=== PATIENT | female | born 1985 | race Caucasian/White ===

== ENCOUNTER 2020-02-06 22:07 | Emergency (ER) | payer BC, OTHER ==
[2020-02-06] MEDS ORDERED: LORazepam 2 MG/ML SDV IM STA (22:32)
--- NOTE | 2020-02-06 22:37 | EDM.PDOC ---
ED HPI GENERAL MEDICAL PROBLEM - General Chief Complaint: General Stated Complaint: SHORTNESS OF BREATH Time Seen by Provider: 02/06/20 22:25 Source of Information: Reports: Patient History Limitations: Reports: No Limitations - History of Present Illness INITIAL COMMENTS - FREE TEXT/NARRATIVE: Patient presented to the ED because of chest pain, numbness and tingling on her face and hands. She has a h/o anxiety and is taking klonopin. She said she has been under a lot of stress recently specially with the COVID-19. Chest Pain Score (Numeric/FACES): 6 - Related Data Allergies Allergy/AdvReac Type Severity Reaction Status Date / Time codeine Allergy Nausea and Verified 04/24/13 13:41 Vomiting Home Meds: Home Meds Ibuprofen [Motrin] 200 mg PO Q6H 500 Days tablet 04/27/13 [Rx] Albuterol [Ventolin HFA] 02/06/20 [History] Doxepin [SINEquan] 50 mg PO DAILY 02/06/20 [History] Eletriptan Hydrobromide [Eletriptan HBr] 40 mg PO DAILY 02/06/20 [History] Erenumab-Aooe [Aimovig Autoinjector] 140 mg INJECT ASDIRECTED 02/06/20 [History] Fluticasone Propionate [Flonase] 50 mcg INH DAILY 02/06/20 [History] Fluticasone/Salmeterol [Advair 500-50] 500 mcg INH DAILY 02/06/20 [History] Montelukast Sodium 10 mg PO DAILY 02/06/20 [History] clonazePAM [Clonazepam] 0.5 mg PO BEDTIME 02/06/20 [History] Past Medical History - Past Health History Medical/Surgical History: Denies Medical/Surgical History ED ROS GENERAL - Review of Systems Review Of Systems: See Below Constitutional: Reports: No Symptoms HEENT: Reports: No Symptoms Respiratory: Reports: No Symptoms Cardiovascular: Reports: Chest Pain Endocrine: Reports: No Symptoms GI/Abdominal: Reports: No Symptoms : Reports: No Symptoms Musculoskeletal: Reports: No Symptoms Skin: Reports: No Symptoms Neurological: Reports: No Symptoms Psychiatric: Reports: No Symptoms Hematologic/Lymphatic: Reports: No Symptoms ED EXAM, GENERAL - Physical Exam Exam: See Below Exam Limited By: No Limitations General Appearance: Alert, No Apparent Distress Eye Exam: Bilateral Eye: PERRL Ears: Normal External Exam, Normal Canal Nose: Normal Inspection, Normal Mucosa Throat/Mouth: Normal Inspection, Normal Lips, Normal Teeth Head: Atraumatic, Normocephalic Neck: Normal Inspection, Supple, Non-Tender, Full Range of Motion Respiratory/Chest: No Respiratory Distress, Lungs Clear, Normal Breath Sounds Cardiovascular: Normal Peripheral Pulses, Regular Rate, Rhythm, No Edema, No Gallop, No JVD, No Murmur GI/Abdominal: Normal Bowel Sounds, Soft, Non-Tender, No Organomegaly Back Exam: Normal Inspection, Full Range of Motion Course - Vital Signs Text/Narrative:: Ativan 1 mg IM x1 EKG-NSR Last Recorded V/S: Last Vital Signs Temp 36.7 C 02/06/20 22:23 Pulse 97 02/06/20 23:11 Resp 12 02/06/20 23:11 BP 131/78 02/06/20 23:11 Pulse Ox 96 02/06/20 23:11 - Orders/Labs/Meds Meds: Medications Discontinued Medications Generic Name Dose Route Start Last Admin Trade Name Brennan PRN Reason Stop Dose Admin Lorazepam 1 mg 02/06/20 22:32 02/06/20 22:40 Ativan IM 02/06/20 22:33 1 mg NOW STA Administration Departure - Departure Time of Disposition: 22:55 Disposition: Home, Self-Care 01 Condition: Good Clinical Impression: Anxiety - Discharge Information Instructions: Generalized Anxiety Disorder, Adult Referrals: Stephen Mcdonald MD [Primary Care Provider] - Forms: ED Department Discharge Additional Instructions: please read discharge instructions on anxiety attack do some meditation technique in you tube take you clonazepam as prescribed follow up as needed Sepsis Event Note (ED) - Evaluation Sepsis Screening Result: No Definite Risk - Focused Exam Vital Signs: Vital Signs Temp Pulse Resp BP Pulse Ox 02/06/20 23:11 97 12 131/78 96 02/06/20 22:23 36.7 C 101 H 16 133/77 100
[2020-02-06 23:12] VITALS: BP 131/78; PULSE 97
== END 2020-02-06 23:20 | disposition home or self-care (01) ==
LOC: FB.ED 22:07
DX: F41.9 Anxiety disorder, unspecified (principal); Z88.5 Allergy status to narcotic agent; Z79.899 Other long term (current) drug therapy
CPT/HCPCS: 93005; 96372; 99284; J2060; 99283

== ENCOUNTER 2020-07-31 13:59 | Emergency (ER) | payer OTHER ==
--- NOTE | 2020-07-31 14:09 | EDM.PDOC ---
ED HPI GENERAL MEDICAL PROBLEM - General Stated Complaint: POSSIBLE BROKE FINGER ON LEFT HAND Time Seen by Provider: 07/31/20 14:05 Source of Information: Reports: Patient History Limitations: Reports: No Limitations - History of Present Illness INITIAL COMMENTS - FREE TEXT/NARRATIVE: 35-year-old female who reports that she was walking down the stairs with a load of things for her son and she misstepped and fell landing on her back and twisting her left ankle and catching herself with her left hand causing an injury to her left palm and to her left fourth finger. This occurred approximately 1:40 PM. She denies any head injury or loss of consciousness. She does report pain in the left fourth finger that she rates as a 10/10. It is sharp and stinging. She reports a 2/10 level of pain in her left ankle but has full range of motion in the ankle and is ambulatory without any problems. She has no neck or back pain. No nausea or vomiting. The pain in her left fourth finger is worse with palpation and with movement. She does have 2 rings on the left fourth finger and the finger is quite swollen and these cannot be removed even with lubricating gel. The finger is well perfused but I did recommend that the rings be removed and initially the patient was quite opposed to this but later did give consent to allow us to cut the rings to remove them. This was witnessed by SMITA Isidro. There are no other associated signs or symptoms. There are no other modifying factors. Onset: Today Duration: Constant (1:40 PM) Location: Reports: Upper Extremity, Left (Left fourth finger) Quality: Reports: Sharp, Stabbing Severity: Moderate (to severe) Improves with: Reports: Rest Worsens with: Reports: Other (Palpation), Movement Context: Reports: Trauma Associated Symptoms: Reports: No Other Symptoms Treatments ORE MINER: Reports: Other (see below) (Nothing.) left 4th finger Pain Score (Numeric/FACES): 6 - Related Data Allergies Allergy/AdvReac Type Severity Reaction Status Date / Time codeine Allergy Nausea and Verified 07/31/20 14:33 Vomiting Home Meds: Home Meds Ibuprofen [Motrin] 200 mg PO Q6H 500 Days tablet 04/27/13 [Rx] Albuterol [Ventolin HFA] 1 puff INH ASDIRECTED PRN 02/06/20 [History] Doxepin [SINEquan] 50 mg PO DAILY 02/06/20 [History] Eletriptan Hydrobromide [Eletriptan HBr] 40 mg PO DAILY 02/06/20 [History] Erenumab-Aooe [Aimovig Autoinjector] 140 mg INJECT ASDIRECTED 02/06/20 [History] Fluticasone Propionate [Flonase] 50 mcg INH DAILY 02/06/20 [History] Fluticasone/Salmeterol [Advair 500-50] 500 mcg INH DAILY 02/06/20 [History] Montelukast Sodium 10 mg PO DAILY 02/06/20 [History] clonazePAM [Clonazepam] 0.5 mg PO BEDTIME 02/06/20 [History] Past Medical History Respiratory History: Reports: Asthma Neurological History: Reports: Migraines Psychiatric History: Reports: Anxiety, Depression, Panic Attack, Other (See Below) Other Psychiatric History: night terrors Endocrine/Metabolic History: Reports: Obesity/BMI 30+ - Past Surgical History HEENT Surgical History: Reports: Oral Surgery ([place] teeth extraction), Tonsillectomy Female Surgical History: Reports: Section Social & Family History - Tobacco Use Tobacco Use Status *Q: Unknown Ever Used Tobacco (Nonsmoker) - Alcohol Use Alcohol Use History: No - Living Situation & Occupation Living situation: Reports: 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 So she is not up-to-date on her tetanus immunization and she was given a Tdap immunization today.) Eyes: Reports: No Symptoms Ears: Reports: No Symptoms Nose: Reports: No Symptoms Mouth/Throat: Reports: No Symptoms Respiratory: Reports: No Symptoms Cardiovascular: Reports: No Symptoms GI/Abdominal: Reports: No Symptoms Musculoskeletal: Reports: Joint Pain (Mild pain and left ankle but with full and active range of motion and normal weightbearing.), Other (Left fourth finger pain with deformity over the DIP of the left fourth finger.) Skin: Reports: Wound (Abrasions on the left fourth finger and left thenar Palm.) Neurological: Reports: No Symptoms Psychiatric: Reports: Anxiety ED EXAM, GENERAL - Physical Exam Exam: See Below Exam Limited By: No Limitations General Appearance: Alert, Anxious, Moderate Distress (And some pain.), Obese Eye Exam: Bilateral Eye: EOMI, Normal Inspection Ears: Normal External Exam, Hearing Grossly Normal Ear Exam: Bilateral Ear: Auricle Normal Nose: Normal Inspection, Normal Mucosa, No Blood Throat/Mouth: Normal Inspection, Normal Lips, Normal Oropharynx, Normal Voice, No Airway Compromise Head: Atraumatic, Normocephalic Neck: Normal Inspection, Supple, Non-Tender, Full Range of Motion Respiratory/Chest: No Respiratory Distress, Lungs Clear, Normal Breath Sounds, No Accessory Muscle Use, Chest Non-Tender Cardiovascular: Normal Peripheral Pulses, Regular Rate, Rhythm, No Murmur Peripheral Pulses: 2+: Radial (L), Radial (R) GI/Abdominal: Normal Bowel Sounds, Soft, Non-Tender, No Mass Back Exam: Normal Inspection, Full Range of Motion Extremities: Normal Range of Motion (In both ankles.), No Pedal Edema, Normal Capillary Refill, Limited Range of Motion (In left fourth finger with obvious deformity of the DIP joint of the left fourth finger.) Neurological: Alert, Oriented, CN II-XII Intact, Normal Cognition, No Motor/Sensory Deficits Psychiatric: Anxious Skin Exam: Warm, Dry, Normal Color, Wound/Incision (Abrasions on the left hand as above.) ED TRAUMA EXTREMITY PROCEDURES - Joint Reduction Left Fingers Sedation: Other (Oral pain medication) Pre-Procedure NV Status: Normal Post-Procedure NV Status: Normal Technique: Traction/Counter Traction Number of Attempts: 1 Joint Reduction Complications: No Progress/Comments: It should be noted this was a reduction of dislocation of the left fourth finger DIP joint. There does appear to be a volar plate fracture prior to reduction of the distal phalanx of the left fourth finger. An AlumaFoam splint distal left fourth finger over the DIP joint in extension by the nursing staff.. - Additional/Other Procedure(s) Other (Free Text) Procedure(s): After informed verbal consent was obtained from the patient, the 2 rings on the left fourth finger were removed using the ring cutter device. The patient tolerated this well and there were no apparent complications. Course - Vital Signs Last Recorded V/S: Last Vital Signs Temp 36.8 C 07/31/20 14:35 Pulse 98 07/31/20 14:35 Resp 20 07/31/20 14:35 BP 142/85 H 07/31/20 14:35 Pulse Ox 100 07/31/20 14:35 - Orders/Labs/Meds Orders: Active Orders 24 hr Category Date Time Status Vaccines to be Administered [RC] PER UNIT ROUTINE Care 07/31/20 14:22 Active Fingers Fourth Digit Lt F3 [CR] Stat Exams 07/31/20 14:10 Taken Fingers Fourth Digit Lt F3 [CR] Stat Exams 07/31/20 15:14 Taken Meds: Medications Discontinued Medications Generic Name Dose Route Start Last Admin Trade Name Brennan PRN Reason Stop Dose Admin Hydrocodone Bitart/Acetaminophen Confirm 07/31/20 14:45 07/31/20 14:56 Brixey 325-5 Mg Administered 07/31/20 14:46 Not Given Dose 2 tab .ROUTE .STK-MED ONE Hydrocodone Bitart/Acetaminophen 2 tab 07/31/20 14:47 07/31/20 14:50 Brixey 325-5 Mg PO 07/31/20 14:48 2 tab ONETIME ONE Administration Diphtheria/Tetanus/Acell Pertussis 0.5 ml 07/31/20 14:22 07/31/20 15:30 Boostrix IM 07/31/20 14:23 0.5 ml .ONCE ONE Administration Ondansetron HCl Confirm 07/31/20 14:44 07/31/20 14:56 Zofran Odt Administered 07/31/20 14:45 Not Given Dose 4 mg .ROUTE .STK-MED ONE Ondansetron HCl 4 mg 07/31/20 14:47 07/31/20 14:50 Zofran Odt PO 07/31/20 14:48 4 mg ONETIME ONE Administration - Radiology Interpretation Free Text/Narrative:: X-ray of left fourth finger shows superior dislocation of the left fourth finger DIP joint. There is a volar plate fracture of the distal phalanx of the left fourth finger. X-ray of the left fourth finger status post reduction of the dislocation shows good anatomic alignment of the DIP joint above-mentioned volar plate injury is present. - Re-Assessments/Exams Free Text/Narrative Re-Assessment/Exam: 07/31/20 15:15: The patient tolerated the ring removals without any problems. She was given hydrocodone 5/325, 2 of them by mouth with Zofran 4 mg by mouth. The left fourth finger DIP joint dislocation was reduced easily and there were no apparent complications. There did appear to be a volar plate fracture of the distal phalanx of the fourth finger before the reduction. I will do a postreduction x-ray of the left fourth finger. 07/31/20 15:41: The postreduction x-ray of the left fourth finger does show good reduction in the PIP joint with anatomic alignment. There is the volar plate injury as noted above prior to reduction. She was advised to follow-up with her primary doctor if she is having any problems with function in the left fourth finger. Departure - Departure Time of Disposition: 15:42 Disposition: Home, Self-Care 01 Clinical Impression: Dislocation of distal interphalangeal (DIP) joint of left ring finger Qualifiers: Encounter type: initial encounter Qualified Code(s): S63.295A - Dislocation of distal interphalangeal joint of left ring finger, initial encounter Volar plate injury of finger Qualifiers: Encounter type: initial encounter Qualified Code(s): S63.639A - Sprain of interphalangeal joint of unspecified finger, initial encounter - Discharge Information Instructions: How to Use Cold Therapy, [id number], Finger or Thumb Dislocation, [id number], Finger Fracture, Adult, [id number] Referrals: Stephen Mcdonald MD [Primary Care Provider] - Additional Instructions: You did have a dislocation of the distal joint of your left fourth finger. It was reduced completely. There was also a fracture associated with this dislocation along the bottom part of the distal bone in the left fourth finger. You will need to use the splint for the next few weeks. You should begin doing range of motion with your left fourth finger in a few days and you should avoid any strenuous use with the left hand for the next 2-4 weeks. If you aren't having any trouble completely closing or using the left fourth finger you should follow-up with your primary doctor as you may need referral to a hand specialist at that time. You can take Tylenol and ibuprofen as needed for pain. Back to the emergency department for marked increase in pain, redness, increasing swelling, any signs of infection or any other concerning sign or symptom. Sepsis Event Note (ED) - Focused Exam Vital Signs: Vital Signs Temp Pulse Resp BP Pulse Ox 07/31/20 14:35 36.8 C 98 20 142/85 H 100 - My Orders Last 24 Hours: My Active Orders 07/31/20 14:10 Fingers Fourth Digit Lt F3 [CR] Stat 07/31/20 14:22 Vaccines to be Administered [RC] PER UNIT ROUTINE 07/31/20 15:14 Fingers Fourth Digit Lt F3 [CR] Stat - Assessment/Plan Last 24 Hours: My Active Orders 07/31/20 14:10 Fingers Fourth Digit Lt F3 [CR] Stat 07/31/20 14:22 Vaccines to be Administered [RC] PER UNIT ROUTINE 07/31/20 15:14 Fingers Fourth Digit Lt F3 [CR] Stat
[2020-07-31] MEDS: Ondansetron 4 MG Tab.DIS PO ONE (14:50)
[2020-07-31] MEDS: Acetaminophen/HYDROcodone 325-5 MG Tab PO ONE (14:50)
[2020-07-31 14:53] VITALS: BP 142/85; PULSE 98
[2020-07-31] MEDS: Acetaminophen/HYDROcodone 325-5 MG Tab ONE (14:56)
[2020-07-31] MEDS: Ondansetron 4 MG Tab.DIS ONE (14:56)
[2020-07-31] MEDS: Diphtheria,Pertussis(Acell),Tetanus Vaccine 0.5 ML Syringe IM ONE (15:30)
--- NOTE | 2020-07-31 16:42 | CR ---
INDICATION: Fall with injury to left fourth finger. LEFT FOURTH FINGER: Three views of the left fourth finger revealed a complete dislocation dorsally of the distal phalanx of the left fourth digit with respect to the middle phalanx. There is no definite fracture at the DIPJ. However, at the PIPJ of the left fourth digit there is question of an avulsion chip fracture fragment along the medial aspect of the PIPJ. This is by several millimeters from the main fracture fragment. It apparently arises from the medial volar aspect of the proximal metaphysis of the middle phalanx of the left fourth digit. No other significant bone or joint abnormality was identified. MTDD
--- NOTE | 2020-07-31 16:47 | CR ---
INDICATION: Post reduction of left fourth digit DIP joint dislocation. LEFT FOURTH DIGIT: Three views of the left fourth digit were obtained 07/31/20 at 1507 hours and compared with 1432 hours of the same date. The fourth digit was visualized through a splint. The dislocation at the DIPJ has been reduced. There is suggestion of some very tiny densities along the volar aspect of the DIPJ which could represent very tiny avulsion chip fracture fragments. No complicating process was identified. MTDD
== END 2020-07-31 15:47 | disposition home or self-care (01) ==
LOC: FB.ED 13:59
DX: S63.295A Dislocation of distal interphalangeal joint of left ring finger, initial encounter (principal); J45.909 Unspecified asthma, uncomplicated; F41.9 Anxiety disorder, unspecified; F32.9 Major depressive disorder, single episode, unspecified; Z23 Encounter for immunization; E66.9 Obesity, unspecified; Z68.39 Body mass index [BMI] 39.0-39.9, adult; Z88.5 Allergy status to narcotic agent; W10.9XXA Fall (on) (from) unspecified stairs and steps, initial encounter
CPT/HCPCS: 26770; 73140; 90471; 90715; 99283; A9270

== ENCOUNTER 2023-12-01 06:51 | Day surgery (SDC) | payer OTHER ==
[~2023-12-01 06:51] MED LIST: Sodium Chloride 0.9% 10 ML Syringe FLUSH PRN
[2023-12-01] MEDS ORDERED: Propofol 200 MG/20 ML SDV IV ONE (06:52)
[2023-12-01] MEDS ORDERED: Lidocaine 2% 100 MG/5 ML Syringe IVPUSH ONE (06:52)
[2023-12-01] MEDS ORDERED: Ondansetron 4 MG/2 ML SDV IVPUSH ONE (06:52)
[2023-12-01] MEDS ORDERED: Midazolam 1 MG/ML 2 ML SDV IV ONE (06:52)
[2023-12-01] MEDS: Lactated Ringers 1,000 ML IV SCH (07:44)
[2023-12-01] MEDS: Simethicone Drops 40 MG/0.6 ML 30 ML Bottle PO ONE (08:11)
[2023-12-01 09:36] VITALS: BP 116/76; PULSE 61
== END 2023-12-01 09:42 | disposition home or self-care (01) ==
LOC: FB.SDS 06:51
PROVIDERS: ATTEND Surgery
DX: K63.5 Polyp of colon (principal); K62.1 Rectal polyp; K64.1 Second degree hemorrhoids; K64.4 Residual hemorrhoidal skin tags; J45.909 Unspecified asthma, uncomplicated; F32.A Depression, unspecified; F41.9 Anxiety disorder, unspecified; Z79.899 Other long term (current) drug therapy; Z88.5 Allergy status to narcotic agent
CPT/HCPCS: 00811; 88305; A9270-GY; J2250; J2405; J2704; J7120